=== PATIENT | female | born 1950 | race African-American/Black ===

== ENCOUNTER 2019-10-12 12:32 | Emergency (ER) | payer MEDICARE, OTHER ==
[~2019-10-12] VITALS: Ht 175.3 cm; Wt 77.1 kg
[2019-10-12] MEDS ORDERED: AMLODIPINE BESY10 MG ORAL (12:49)
[2019-10-12] MEDS ORDERED: PROZAC40 MG ORAL (12:49)
[2019-10-12] MEDS ORDERED: OMEPRAZOLE40 M1 ORAL (12:49)
[2019-10-12] MEDS ORDERED: NORCO 10-325 T1 EACH ORAL (12:49)
--- NOTE | 2019-10-12 12:51 | NUR ---
ED Nurse Note: pt ambulated to ed with cane c/o chronic right knee pain due to her knee replacement "a couple years ago". pt reports typically taking norco for pain.
[2019-10-12 12:52] VITALS: BP 156/53
[2019-10-12] MEDS ORDERED: Ketorolac 30mg Inj IM ONE (13:15)
[2019-10-12] MEDS ORDERED: Methocarbamol 750mg tab ORAL ONE (13:15)
--- NOTE | 2019-10-12 13:21 | Emergency Room Report ---
History of Present Illness General Chief Complaint: Pain Source: Patient (Marco A Vaca) Present Illness HPI 68-year-old female with history of right knee replacement x3 years here complaining of chronic knee pain. Patient reports that she usually takes [place] for pain and has not yet established pain management. Patient has been using her son-in-law's [place] as well as occasionally getting up from her primary doctor. Extensive cures history noted. However patient does not failure acute and will accept prescription for Motrin as well as Toradol injection. Denies any fall or injury. Denies pain radiation, denies tingling or numbness. (Marco A Vaca) Allergies: Coded Allergies: No Known Allergies (Unverified , 10/12/19) Patient History Past Medical History: see triage record Past Surgical History: none Pertinent Family History: none Now: No Immunizations: UTD Reviewed Nursing Documentation: PMH: Agreed; PSxH: Agreed (Marco A Vaca) Nursing Documentation-PMH Past Medical History: No History, Except For Hx Cardiac Problems: No - right knee placement Hx Hypertension: Yes Hx Pacemaker: No Hx Asthma: Yes Hx COPD: Yes Hx Diabetes: No Hx Cancer: No Hx Gastrointestinal Problems: Yes Hx Dialysis: No History Of Psychiatric Problem: Yes - Depression Hx Neurological Problems: No Hx Cerebrovascular Accident: No Hx Seizures: No (Marco A Vaca) Review of Systems All Other Systems: negative except mentioned in HPI (Marco A Vaca) Physical Exam Vital Signs Date Time Temp Pulse Resp B/P (MAP) Pulse Ox O2 Delivery O2 Flow Rate FiO2 10/12/19 12:43 98.4 93 15 156/53 (87) 99 Room Air Sp02 EP Interpretation: reviewed, normal General Appearance: no apparent distress, alert, GCS 15, non-toxic Head: normocephalic, atraumatic Eyes: bilateral eye normal inspection, bilateral eye PERRL ENT: hearing grossly normal, normal pharynx, no angioedema, normal voice Neck: full range of motion, supple/symm/no masses Respiratory: chest non-tender, lungs clear, normal breath sounds, no rhonchi, no respiratory distress, no retraction, no accessory muscle use, no wheezing, speaking full sentences Cardiovascular #1: regular rate, rhythm, no edema, no murmur Cardiovascular #2: 2+ dorsalis pedis (R), 2+ dorsalis pedis (L) Gastrointestinal: normal bowel sounds, non tender, soft, non-distended, no guarding, no rebound Rectal: deferred Genitourinary: adnexa normal Musculoskeletal: back normal, no calf tenderness, gait/station normal Neurologic: alert, motor strength/tone normal, oriented x3, sensory intact, responsive, speech normal Psychiatric: normal inspection, judgement/insight normal Skin: no rash Lymphatic: no adenopathy (Marco A Vaca) Medical Decision Making PA Attestation All my diagnosis and treatment plans were reviewed ad discussed with my supervising physician Dr. Mitchell (Marco A Vaca) Medicare Attestation The history of Vita Lennon has been reviewed and management options for her have been examined and discussed by Garíca Mitchell. I have personally examined and interviewed the patient. (García Mitchell MD) Diagnostic Impression: Primary Impression: Chronic knee pain ER Course 68-year-old female with history of right knee replacement x3 years here complaining of chronic knee pain. Patient reports that she usually takes [place] for pain and has not yet established pain management. Patient has been using her son-in-law's [place] as well as occasionally getting up from her primary doctor. Extensive cures history noted. However patient does not failure acute and will accept prescription for Motrin as well as Toradol injection. Denies any fall or injury. Denies pain radiation, denies tingling or numbness. Ddx considered but are not limited to: Knee sprain, strain, fracture, contusion , meniscus tear injury Vital signs: are WNL, pt. is afebrile H&PE are most consistent with: chronic knee pain ORDERS: motrin, robaxin, voltaren gel ER intervention: toradol, robaxin DISCHARGE: At this time pt. is stable for d/c to home. Will provide printed patient care instructions, and any necessary prescriptions. Care plan and follow up instructions have been discussed with the patient prior to discharge. Follow-up with your holistic specialist as well as pain management, take medication as directed, if worsening symptoms return to the emergency room (Marco A Vaca) Last Vital Signs Date Time Temp Pulse Resp B/P (MAP) Pulse Ox O2 Delivery O2 Flow Rate FiO2 10/12/19 12:52 98.4 78 15 156/53 99 Room Air (Marco A Vaca) Disposition: HOME, SELF-CARE Condition: Stable Scripts Diclofenac Sodium (VOLTAREN) 100 Gm Gel..gram. 2 GM TP TID, #100 GM Prov: Marco A Vaca 10/12/19 Methocarbamol* (ROBAXIN-500*) 500 Mg Tablet 500 MG ORAL TID PRN for For Pain, #15 TAB 0 Refills Prov: Marco A Vaca 10/12/19 Ibuprofen* (MOTRIN*) 600 Mg Tablet 600 MG ORAL Q6H PRN for For Pain, #30 TAB Prov: Marco A Vaca 10/12/19 Referrals: NON PHYSICIAN (PCP) Patient Instructions: Knee Pain, [id number] Additional Instructions: You need to follow-up with holistic specialist as well as pain management post knee replacement pain and ask a psychiatrist for restart of Prozac. If worsening symptoms return to the emergency room Marco A Vaca Oct 12, 2019 13:21 García Mitchell MD Nov 01, 2019 14:36
[2019-10-12] MEDS ORDERED: VOLTAREN100 G1 TP (13:22)
[2019-10-12] MEDS ORDERED: IBUPROFEN600 MG ORAL (13:22)
[2019-10-12] MEDS ORDERED: ROBAXIN-500MG ORAL (13:22)
[2019-10-12 13:30] VITALS: BP 149/62
--- NOTE | 2019-10-12 13:30 | NUR ---
ER DISCHARGE NOTE: Patient is cleared to be discharged per ERMD, pt is aox4, on room air, with stable vital signs. pt was given dc and prescription instructions, pt was able to verbalize understanding, pt id bandremoved. pt is able to ambulate with steady gait on cane. pt took all belongings.
== END 2019-10-12 13:30 | disposition home or self-care (01) ==
LOC: EMR 13:10
DX: G89.29 Other chronic pain (principal); M25.561 Pain in right knee; I10 Essential (primary) hypertension; J45.909 Unspecified asthma, uncomplicated; J44.9 Chronic obstructive pulmonary disease, unspecified; Z96.651 Presence of right artificial knee joint
CPT/HCPCS: 96372; 99283; J1885